=== PATIENT | male | born 1940 | race Caucasian/White ===

== ENCOUNTER 2018-12-13 20:36 | Observation (INO) | payer MEDICARE ==
--- NOTE | 2018-12-13 21:22 | Emergency Department Record ---
History of Present Illness - General Chief complaint: Weakness Stated complaint: SHAKY AND WEAK Time Seen by Provider: 12/13/18 20:53 Source: Patient Mode of Arrival: Ambulatory Limitations: No limitations - History of Present Illness Initial comments: 78 yo male presents to ED for evaluation of generalized weakness to the lower extremities, denies fevers, chills, or recent illness. Patient denies recent injury, denies back pain symptoms resulting in weakness symptoms, denies cough, abdominal pain, or chest pain symptoms. Patient denies vertigo symptoms. Patient denies focal weakness, change in speech, or facial droop symptoms. MD Complaint: Generalized weakness Onset/Timin -: Days(s) Location: Generalized Severity: Moderate Consistency: Constant Improves with: None Worsens with: Other (attempted ambulation) Associated Symptoms: Denies other symptoms - Katherine Coma Scale Eye Response: (4) Open spontaneously Motor Response: (6) Obeys commands Verbal Response: (5) Oriented Katherine Total: 15 - Related Data Home Medications Medication Instructions Recorded Confirmed Last Taken Insulin Aspart [Novolog] 18 units SQ DAILY 12/13/18 12/13/18 12/13/18 Allergies Allergy/AdvReac Type Severity Reaction Status Date / Time codeine Allergy ALTERED Verified 02/08/15 09:27 MENTAL STATUS propoxyphene napsylate Allergy ALTERED Verified 02/08/15 09:27 [From Rajwinder-Jessie] MENTAL STATUS Travel Screening - Travel/Exposure Within Last 30 Days Have you traveled within the last 30 days?: No - Travel/Exposure Within Last Year Have you traveled outside the [place] in the last year?: No - Additonal Travel Details Have you been exposed to anyone with a communicable illness?: No - Travel Symptoms Symptom Screening: None Review of Systems Constitutional: Reports: Malaise, Weakness. Denies: Chills, Fever, Night sweats Eyes: Denies: Eye discharge, Eye pain ENT: Denies: Congestion, Ear pain, Epistaxis Respiratory: Denies: Cough, Dyspnea Cardiovascular: Denies: Chest pain, Dyspnea on exertion Endocrine: Reports: Fatigue. Denies: Heat or cold intolerance, Polydipsia Gastrointestinal: Denies: Abdominal pain, Nausea, Vomiting Genitourinary: Denies: Incontinence, Retention Musculoskeletal: Denies: Arthralgia, Back pain Skin: Denies: Bruising, Change in color Neurological: Denies: Abnormal gait, Confusion, Headache Psychiatric: Denies: Anxiety Hematological/Lymphatic: Denies: Anemia, Blood Clots Past Medical History - SOCIAL HISTORY Smoking Status: Former smoker Alcohol Use: None Drug Use: None - RESPIRATORY Hx Respiratory Disorders: No - CARDIOVASCULAR Hx Cardio Disorders: Yes Hx Hypertension: Yes Comment:: high cholesterol - NEURO Hx Neuro Disorders: No - GI Hx GI Disorders: Yes Hx Reflux: Yes (takes tums) - Hx Genitourinary Disorders: No - ENDOCRINE Hx Endocrine Disorders: Yes Hx Diabetes: Yes (Type 2) Hx Thyroid Disease: No - MUSCULOSKELETAL Hx Musculoskeletal Disorders: Yes Hx Arthritis: Yes - PSYCH Hx Psych Problems: No - HEMATOLOGY/ONCOLOGY Hx Hematology/Oncology Disorders: No Family Medical History Any Significant Family History?: Yes Family Hx Comment (NOT TO BE USED IN PLACE OF ITEMS BELOW): denies Hx Cancer: Mother Physical Exam - General General Appearance: Alert, Oriented x3, Cooperative, No acute distress Limitations: No limitations - Head Head exam: Atraumatic, Normocephalic, Normal inspection Head exam detail: negative: Abrasion, Contusion, Greenberg's sign, General tenderness, Hematoma, Laceration - Eye Eye exam: Normal appearance. negative: Conjunctival injection, Periorbital swelling, Periorbital tenderness, Scleral icterus - ENT Ear exam: negative: Auricular hematoma, Auricular trauma Nasal Exam: negative: Active bleeding, Discharge, Dried blood, Foreign body Mouth exam: negative: Drooling, Laceration, Muffled voice, Tongue elevation - Neck Neck exam: Normal inspection. negative: Meningismus, Tenderness - Respiratory Respiratory exam: Normal lung sounds bilaterally. negative: Rales, Respiratory distress, Rhonchi, Stridor - Cardiovascular Cardiovascular Exam: Regular rate, Normal rhythm, Normal heart sounds - GI/Abdominal GI/Abdominal exam: Soft. negative: Rebound, Rigid, Tenderness - Rectal Rectal exam: Deferred - exam: Deferred - Extremities Extremities exam: Normal inspection. negative: Pedal edema, Tenderness - Back Back exam: Denies: CVA tenderness (R), CVA tenderness (L) - Neurological Neurological exam: Alert, Normal gait, Oriented X3 - Psychiatric Psychiatric exam: Normal affect, Normal mood - Skin Skin exam: Normal color. negative: Abrasion Type of lesion: negative: abrasion Course Vital Signs 12/13/18 20:57 Temperature 99.6 F Pulse Rate [ 94 H Right] Respiratory 19 Rate Blood Pressure 165/84 [Left Arm] Pulse Ox 95 - Reevaluation(s) Reevaluation #1: 12/13/18 21:21 EKG: NSR 89 LAD, IVCD No acute ST-T wave changes are present. Laboratory studies were reviewed and appear grossly unremarkable for an acute process. UA appears negative for infection. CXR: ? retrocardiac infiltrate Patient and family members were updated on all results, will admit for further evaluation. Reevaluation #2: 12/14/18 06:54 Case was discussed with Trinity Bocanegra FIRE FIGHTER, will accept admission at this time. Medical Decision Making - Lab Data Result diagrams: 12/13/18 21:20 12/13/18 21:20 Disposition Disposition: Admit Clinical Impression: Generalized weakness Fever Qualifiers: Fever type: unspecified Qualified Code(s): R50.9 - Fever, unspecified CAP (community acquired pneumonia) Qualifiers: Laterality: unspecified laterality Qualified Code(s): J18.9 - Pneumonia, unspecified organism Disposition: Still a Patient at [facility] Decision to Admit: Admit from ER Decision to Admit Date: 12/13/18 Decision to Admit Time: 23:06 Condition: (2) Stable Time of Disposition: 23:06 Quality - Quality Measures Quality Measures: N/A - Blood Pressure Screening Does Patient Have Any of the Following: Active Dx of HTN Blood Pressure Classification: Normal BP Reading Systolic Measurement: 119 Diastolic Measurement: 59 Screening for High Blood Pressure: Patient Exclusion, Hx of HTN [G9744] Pre-Hypertensive Follow-up Interventions: Referral to alternative/primary care provider.
[2018-12-13 21:34] LABS: ABSOLUTE NEUTROPHIL COUNT 6.48; BASO % 0.1 % (0-6); GRAN % 78.3 % (47-80); HEMATOCRIT 39.4 % (42.0-52.0); HEMOGLOBIN 13.3 gm/dl (14.0-18.0); MEAN CELL VOLUME 92.3 fl (81-97); MEAN CORPUSCULAR HEMOGLOBIN 31.1 pg (27-33); MEAN CORPUSCULAR HGB CONC 33.8 g/dl (32-36); MONO % 9.6 % (0-9); PLATELET COUNT 223 K/uL (130-400); RED BLOOD COUNT 4.27 M/uL (4.40-5.70); RED CELL DISTRIBUTION WIDTH 13.3 % (11.5-14.5); WHITE BLOOD COUNT W/O DIFF 8.3 K/uL (4.2-12.2)
[2018-12-13 21:40] LABS: URINE APPEARANCE CLEAR; URINE BILIRUBIN NEGATIVE (NEGATIVE); URINE BLOOD TRACE-I (NEGATIVE); URINE COLOR YELLOW; URINE KETONE NEGATIVE (NEGATIVE); URINE LEUKOCYTE ESTERASE NEGATIVE (NEGATIVE); URINE NITRITE NEGATIVE (NEGATIVE); URINE UROBILINOGEN 0.2 E.U./dL (0.20 - 1.00)
[2018-12-13 21:45] LABS: BLOOD UREA NITROGEN 16 mg/dL (8-23)
[2018-12-13 21:46] LABS: EST GLOMERULAR FILTRATION RATE > 60 mL/min; TOTAL PROTEIN 7.2 g/dL (6.6-8.7)
[2018-12-13 21:48] LABS: URINE EPITHELIAL CELLS NONE SEEN (FEW); URINE RBC NONE SEEN (NONE SEEN); URINE WBC NONE SEEN (0-2/hpf)
[2018-12-13 21:48] LABS: GLUCOSE,RANDOM 145 mg/dL (74-109)
[2018-12-13 21:51] LABS: ALB/GLOB RATIO 1.4 (1.1-1.8); ALBUMIN 4.2 g/dL (4.0-5.0); ALKALINE PHOSPHATASE 49 U/L (40-129); ALT/SGPT 14 U/L (<41); AST/SGOT 16 U/L (10.0-50.0)
[2018-12-13] MEDS ORDERED: ACETAMINOPHEN 500 MG TABLET PO ONE (22:10)
[2018-12-13] MEDS ORDERED: PIPERACILLIN SODIUM/TAZOBACTAM 4.5 GM in 0.9 % SODIUM CHLORIDE 100ML 100 ML IVPB ONE (23:04)
[2018-12-13] MEDS ORDERED: AZITHROMYCIN 500 MG TABLET PO ONE (23:04)
[2018-12-13] MEDS ORDERED: ACETAMINOPHEN 500 MG TABLET PO PRN (23:32)
[2018-12-13] MEDS ORDERED: PIPERACILLIN SODIUM/TAZOBACTAM 4.5 GM in 0.9 % SODIUM CHLORIDE 100ML 100 ML IVPB SCH (23:32)
[2018-12-13] MEDS ORDERED: 0.9 % SODIUM CHLORIDE 1000ML 1,000 ML IV PRN (23:32)
[2018-12-14] MEDS: PIPERACILLIN SODIUM/TAZOBACTAM 4.5 GM in 0.9 % SODIUM CHLORIDE 100ML 100 ML IVPB SCH ×2 (05:04→12:39)
[2018-12-14] MEDS ORDERED: HUMALOG SC SCH (07:00)
[2018-12-14] MEDS ORDERED: NOVOLOG SC SCH (07:00)
[2018-12-14] MEDS ORDERED: NOVOLOG FLEXPEN (INSULIN ASPART) 100 UNITS/ML SQ SCH (07:00)
--- NOTE | 2018-12-14 07:16 | RADIOLOGY REPORT ---
EXAM: CHEST, TWO VIEWS HISTORY: DRY COUGH. WEAKNESS AND SHAKING FOR THE LAST TWO DAYS. TECHNIQUE: Upright PA and lateral views of the chest were obtained. Comparison: CT angiogram of the chest dated 03/02/16. FINDINGS: The lung volumes are low. The heart is not enlarged. No pulmonary venous hypertension is seen. No definite confluent air space opacity is identified nor is there costophrenic angle blunting or pneumothorax. There are degenerative changes scattered throughout the visualized spine and shoulder girdles. IMPRESSION: LOW LUNG VOLUMES. NO DEFINITE RADIOGRAPHIC EVIDENCE OF ACUTE CARDIOPULMONARY DISEASE. JOB NUMBER: [id number] [facility]
[2018-12-14] MEDS ORDERED: METFORMIN 500 MG TABLET PO SCH (08:00)
[2018-12-14] MEDS ORDERED: METFORMIN 500 MG PO SCH ×2 (08:00→17:30)
[2018-12-14 09:21] LABS: ABSOLUTE NEUTROPHIL COUNT 4.67; BASO % 0.2 % (0-6); GRAN % 73.1 % (47-80); HEMATOCRIT 37.6 % (42.0-52.0); HEMOGLOBIN 12.4 gm/dl (14.0-18.0); LYMPH % 15.3 % (16-45); MEAN CELL VOLUME 93.3 fl (81-97); MEAN PLATELET VOLUME 9.1 fl (7.4-10.4); MONO % 11.4 % (0-9); PLATELET COUNT 208 K/uL (130-400); RED BLOOD COUNT 4.03 M/uL (4.40-5.70); RED CELL DISTRIBUTION WIDTH 13.3 % (11.5-14.5); WHITE BLOOD COUNT W/O DIFF 6.4 K/uL (4.2-12.2)
[2018-12-14] MEDS ORDERED: ACETAMINOPHEN 500 MG PO PRN (09:23)
[2018-12-14 09:30] LABS: MEAN CORPUSCULAR HEMOGLOBIN 30.7 pg (27-33)
--- NOTE | 2018-12-14 09:47 | Rehab Evaluation ---
Patient Information - Patient Information Diagnosis: Generalized weakness, CAP Ordered Treatment: PT Evaluate and Treat Status: Initial Evaluation History: Detail (Patient presented to ED on 12/14 with generalized weakness.) Past Medical/Surgical Hx: PAST MEDICAL/SURGICAL HISTORY Past Surgical History appy left thumb right & left cataract R knee replacement; R rotator cuff repair PMH - Respiratory Hx Respiratory Disorders No PMH - Cardiovascular Hx Cardiovascular Disorders Yes Hx Hypertension Yes Comment: high cholesterol PMH - Neuro Hx Neurological Disorders No PMH - GI Hx Gastrointestinal Disorders Yes Hx Gastroesophageal Reflux Yes: takes tums PMH - Hx Genitourinary Disorders No PMH - Endocrine Hx Endocrine Disorders Yes Hx Diabetes Yes: Type 2 Hx Thyroid Disease No PMH - Musculoskeletal Hx Musculoskeletal Disorders Yes Hx Arthritis Yes PMH - Psych Hx Psychiatric Problems No PMH - Hematology/Oncology Hx Hematology/Oncology No Disorders Premorbid Status: Detail (The patient was ambulatory without device prior to admission. The patient was independent with all ADL's and did his own laundry. The patient shared yard work and other cost specialist with his sons and grandsons.) Social History: Detail (The patient lives in a 2 story home with a basement with 4 to 5 stairs at the enterance with 2 hand railings. The bathroom is equipped with a tub/shower combination with a tub chair, handheld shower and grab bars. The patient has a standard toilet with no grab bars. The patient has a front wheeled walker and several canes including a quad cane and standard cane.) Precautions: [place], Fall - Time With Patient Total Time Spent With Patient (Min): 30 Treatment Procedures: Detail (Initial evaluation, gait training.) Subjective Information - Subjective Information Per Patient (The patient had no complaints of pain and reports his LE weakness is better. 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.) Objective Data - Mental Status Patient Orientation: Oriented x3 - Visual Perception Appears within normal limits for therapeutic activities - ROM Within normal limits - Strength/Tone Not within normal limits (The patient's LE strength is generally 4+ to 5 /5 except for R knee extensors 4/5.) - Bed Mobility Independent (The patient required minimal PA of one with supine to sit ( hand hold to pull up only- patient refused to try supine to sit by himself)) - Transfers Independent (The patient was independent with sit to and from stand transfer.) - Balance Balance Sitting: Good Balance Standing: Fair (The patient was moderate risk for falling using Tinetti Assessment Tool. Patient scored 23/28 ( 19-23 scores are moderate risk). The patient had slight unsteadiness with right side perturbations however was able to right himself without PT intervention.) - Gait Detail (The patient ambulated with front wheeled walker independently a distance of 130 feet x 1. The patient ambulated on 3 steps with use of one railing with supervision for safety only.) Therapy Assessment - Therapy Assessment Detail (The patient was independent with transfers and ambulation. Due to current moderate fall risk rating using the Tinetti Assessment Tool, it was recommended to patient and his son that he use the walker while ambulating at home. Feel due to independence with mobility, patient does not require Home PT services at this time. Patient did not express any interest in ongoing PT services.) Patient Education - Patient Education Teaching Topic: Precautions (The patient was educated in fall prevention at home.) Teaching Method: Discussion Teaching Recipient: Patient, Family Barriers To Learning: Age Related Problem List - Problem List Physical Therapy Problem List: Detail (1) Moderate Fall risk) Goals - Goals Physical Therapy Goals: No PT goals at this time. Patient is independent with mobility. Plan - Plan Physical Therapy Plan: No ongoing PT is recommended at this time.
[2018-12-14 09:49] LABS: BLOOD UREA NITROGEN 13 mg/dL (8-23); EST GLOMERULAR FILTRATION RATE > 60 mL/min
[2018-12-14 09:51] LABS: GLUCOSE,RANDOM 151 mg/dL (74-109)
[2018-12-14] MEDS ORDERED: LISINOPRIL 2.5 MG PO SCH (10:00)
[2018-12-14] MEDS ORDERED: ASPIRIN 81 MG PO SCH (10:00)
[2018-12-14] MEDS ORDERED: [UNRECOGNIZED DRUG - OTHER] SC SCH (10:00)
[2018-12-14] MEDS ORDERED: INSULIN GLARGINE 100 UNIT/ML SC SCH (10:00)
[2018-12-14] MEDS ORDERED: ASPIRIN 81 MG TABEC PO SCH (10:00)
[2018-12-14] MEDS ORDERED: LEVEMIR FLEXTOUCH 100 UNIT/ML INSULIN PEN SQ SCH (10:00)
[2018-12-14] MEDS ORDERED: VITAMIN D PO SCH (10:00)
--- NOTE | 2018-12-14 10:06 | History & Physical ---
History of Present Illness - Date of Service Date of Service for History & Physical: 12/14/18 - History of Present Illness Admitting Diagnosis: CAP. Generalized weakness. Fever History of Present Illness: 78 yo male presents to ER for generalized weakness after difficulty getting out of his chair while home. Son brought him in via private vehicle. Pt denies fever, chills, CP, cough or shortness of breath. 12/13/18 WBC 8.3, Hgb 13.3, Hct 39.4, Plt 223 Na 134, K 4.2m BUN 16, Cr 1, GFR>60, glucose 145 Trop <0.010 Temp 99.6, HR 94, BP 165/84, RR 19, 95% RA, repeat temp showed 100.6 oral, BP 129/81, HR 83 Pt was given 1gm tylenol, ASA 81mg, Azithromycin 500mg, NS IVF at 125/hr, and Zosyn 4.5gm IVPB CXR negative, UA neg for infection 12/14/18 Pt resting comfortably in bed, no acute distress, denies pain, fever, chills, shortness of breath or weakness. Asking to go home today as he feels better and does not feel weak today. PT/OT eval ordered and completed, pt ambulating in hallway with no difficulty. Lungs CTA, heart RRR, no edema noted, skin pwd. Pt is a&ox4, son at bedside states pt appears to be his normal self. POC, repeat labs unremarkable other than low Mag, 2gm IVPB replaced. Pt to continue zithromax 5 days related to general weakness and isolated fever with comorbities of age and DM. [facility] [place] Travel Screening - Travel/Exposure Within Last 30 Days Have you traveled within the last 30 days?: No Location Detail:: [place] - Travel/Exposure Within Last Year Have you traveled outside the [place] in the last year?: No - Additonal Travel Details Have you been exposed to anyone with a communicable illness?: No - Travel Symptoms Symptom Screening: None Review of Systems Constitutional: Reports: Malaise, Weakness. Denies: Chills, Fever, Night sweats Eyes: Denies: Eye discharge, Eye pain ENT: Denies: Congestion, Ear pain, Epistaxis Respiratory: Denies: Cough, Dyspnea Cardiovascular: Denies: Chest pain, Dyspnea on exertion Endocrine: Reports: Fatigue. Denies: Heat or cold intolerance, Polydipsia Gastrointestinal: Denies: Abdominal pain, Nausea, Vomiting Genitourinary: Denies: Incontinence, Retention Musculoskeletal: Denies: Arthralgia, Back pain Skin: Denies: Bruising, Change in color Neurological: Denies: Abnormal gait, Confusion, Headache Psychiatric: Denies: Anxiety Hematological/Lymphatic: Denies: Anemia, Blood Clots Past Medical History - SOCIAL HISTORY Smoking Status: Former smoker Alcohol Use: None Drug Use: None - RESPIRATORY Hx Respiratory Disorders: No - CARDIOVASCULAR Hx Cardio Disorders: Yes Hx Hypertension: Yes Comment:: high cholesterol - NEURO Hx Neuro Disorders: No - GI Hx GI Disorders: Yes Hx Reflux: Yes (takes tums) - Hx Genitourinary Disorders: No - ENDOCRINE Hx Endocrine Disorders: Yes Hx Diabetes: Yes (Type 2) Hx Thyroid Disease: No - MUSCULOSKELETAL Hx Musculoskeletal Disorders: Yes Hx Arthritis: Yes - PSYCH Hx Psych Problems: No - HEMATOLOGY/ONCOLOGY Hx Hematology/Oncology Disorders: No Family Medical History Any Significant Family History?: Yes Family Hx Comment (NOT TO BE USED IN PLACE OF ITEMS BELOW): denies Hx Cancer: Mother H&P Meds/Allergies - Allergies Allergies: Allergies Allergy/AdvReac Type Severity Reaction Status Date / Time codeine Allergy ALTERED Verified 02/08/15 09:27 MENTAL STATUS propoxyphene napsylate Allergy ALTERED Verified 02/08/15 09:27 [From Katia] MENTAL STATUS - Home Medications Home Medications Medication Instructions Recorded Confirmed Last Taken Insulin Aspart [Novolog] 18 units SQ DAILY 12/13/18 12/13/18 12/13/18 - Active Medications Active Medications: Current Medications Sodium Chloride () 1,000 mls @ 125 mls/hr IV .Q8H PRN PRN Reason: LARGE VOLUME IV Last Admin: 12/14/18 08:59 Dose: 125 mls/hr Documented by: Azithromycin 500 mg/ Sodium (Chloride) 250 mls @ 250 mls/hr IVPB Q24H [facility]EL Stop: 12/19/18 22:01 Piperacillin Sod/Tazobactam (Sod 4.5 gm/ Sodium Chloride) 100 mls @ 200 mls/hr IVPB Q6H CHANTEL Last Infusion: 12/14/18 05:54 Dose: Infused Documented by: Patient Own Med: Acetaminophen 500mg Tabs 1,000 each PO Q6H PRN PRN Reason: PAIN - MILD(1-4)/FEVER Patient Own Med: Aspirin 81mg Enteric Coated 81 each PO DAILY [facility] Last Admin: 12/14/18 09:43 Dose: 81 each Documented by: Patient Own Med: (Humalog Flexpen) 18 each SC DAILYAC [facility] Patient Own Med: Lantus Flextouch 100 Unit/Ml Insulin Pen 48 each SC BID [facility] Last Admin: 12/14/18 09:43 Dose: 48 each Documented by: Patient Own Med: Metformin 500 Mg Tablet 1,000 each PO BIDWM [facility] Patient Own Med: Rosuvastatin 10 Mg Tablet 10 each PO QHS [facility] Patient Own Med: (Lisinipril 2.5mg Tab) 1 each PO DAILY [facility] Patient Own Med: Vitamin D 2000 Rubber Liner. Units 1 each PO DAILY [facility] Physical Exam - Vital Signs Vital Signs: Vital Signs - Last 24 Hrs Temp Pulse Pulse Resp BP BP Pulse Ox 12/14/18 08:00 98.1 F 69 16 123/68 97 12/14/18 04:00 98.5 F 67 14 119/59 95 12/14/18 01:34 85 16 12/14/18 01:31 97.7 F 85 16 110/73 96 12/13/18 22:47 99.0 F 72 20 125/71 95 12/13/18 21:59 100.6 F H 83 18 129/81 94 L 12/13/18 20:57 99.6 F 94 H 19 165/84 95 - General General Appearance: Alert, Oriented x3, Cooperative, No acute distress Limitations: No limitations - Head Head exam: Atraumatic, Normocephalic, Normal inspection Head exam detail: negative: Abrasion, Contusion, Greenberg's sign, General tenderness, Hematoma, Laceration - Eye Eye exam: Normal appearance. negative: Conjunctival injection, Periorbital swelling, Periorbital tenderness, Scleral icterus - ENT Ear exam: negative: Auricular hematoma, Auricular trauma Nasal Exam: negative: Active bleeding, Discharge, Dried blood, Foreign body Mouth exam: negative: Drooling, Laceration, Muffled voice, Tongue elevation - Neck Neck exam: Normal inspection. negative: Meningismus, Tenderness - Respiratory Respiratory exam: Normal lung sounds bilaterally. negative: Rales, Respiratory distress, Rhonchi, Stridor - Cardiovascular Cardiovascular Exam: Regular rate, Normal rhythm, Normal heart sounds - GI/Abdominal GI/Abdominal exam: Soft. negative: Rebound, Rigid, Tenderness - Rectal Rectal exam: Deferred - exam: Deferred - Extremities Extremities exam: Normal inspection. negative: Pedal edema, Tenderness - Back Back exam: Denies: CVA tenderness (R), CVA tenderness (L) - Neurological Neurological exam: Alert, Normal gait, Oriented X3 - Psychiatric Psychiatric exam: Normal affect, Normal mood - Skin Skin exam: Normal color. negative: Abrasion Type of lesion: negative: abrasion Results - Labs Result Diagrams: 12/14/18 08:45 12/14/18 08:45 Labs Last 24 Hours: Laboratory Results - last 24 hr 12/13/18 12/13/18 12/13/18 21:20 21:20 21:35 WBC 8.3 RBC 4.27 L Hgb 13.3 L Hct 39.4 L MCV 92.3 MCH 31.1 MCHC 33.8 RDW 13.3 Plt Count 223 MPV 9.0 Gran % 78.3 Lymphocytes % 12.0 L Monocytes % 9.6 H Eosinophils % 0.0 Basophils % 0.1 Absolute Neutrophils 6.48 Sodium 134 L Potassium 4.2 Chloride 97 L Carbon Dioxide 24.0 Anion Gap 13.0 BUN 16 Creatinine 1.0 Estimated GFR > 60 Random Glucose 145 H Calcium 9.3 Magnesium Total Bilirubin 0.60 AST 16 ALT 14 Alkaline Phosphatase 49 Troponin T < 0.010 Total Protein 7.2 Albumin 4.2 Globulin 3.0 Albumin/Globulin Ratio 1.4 Procalcitonin Urine Color Yellow Urine Appearance Clear Urine pH 6.0 Ur Specific [place] 1.020 Urine Protein 100 mg/dl H Urine Glucose (UA) 250 mg/dl H Urine Ketones Negative Urine Blood Trace-i Urine Nitrite Negative Urine Bilirubin Negative Urine Urobilinogen 0.2 Ur Leukocyte Esterase Negative Urine RBC None seen Urine WBC None seen Ur Epithelial Cells None seen 12/14/18 12/14/18 12/14/18 08:45 08:45 08:45 WBC 6.4 RBC 4.03 L Hgb 12.4 L Hct 37.6 L MCV 93.3 MCH 30.7 MCHC 33.0 RDW 13.3 Plt Count 208 MPV 9.1 Gran % 73.1 Lymphocytes % 15.3 L Monocytes % 11.4 H Eosinophils % 0.0 Basophils % 0.2 Absolute Neutrophils 4.67 Sodium 142 Potassium 3.8 Chloride 105 Carbon Dioxide 23.0 Anion Gap 14.0 BUN 13 Creatinine 1.0 Estimated GFR > 60 Random Glucose 151 H Calcium 8.9 Magnesium 1.3 L Total Bilirubin AST ALT Alkaline Phosphatase Troponin T Total Protein Albumin Globulin Albumin/Globulin Ratio Procalcitonin Cancelled Urine Color Urine Appearance Urine pH Ur Specific [place] Urine Protein Urine Glucose (UA) Urine Ketones Urine Blood Urine Nitrite Urine Bilirubin Urine Urobilinogen Ur Leukocyte Esterase Urine RBC Urine WBC Ur Epithelial Cells VTE H&P Assessment - Risk for VTE Risk for VTE: Yes Risk Level: High Risk Assessment Date: 12/14/18 Risk Assessment Time: 13:07 VTE Orders Placed or Will Be Placed: Yes Plan - Detailed Diagnosis and Plan (1) Generalized weakness Current Visit: Yes Status: Acute Base Code: R53.1 - WEAKNESS Comment: 12/14/18 -Pt admitted for generalized weakness following a very hot and humid day -son was at his house, reports pt had difficulty standing from his chair -denied cough, dysuria, recent infection or sick contacts -CXR negative, there was concern for CAP but spoke with Dr Trevino radiologist and CXR does not show CAP and pt is not symptomatic of CAP -pt had one episode of fever in ER, will continue azithromycin for fever -EKG negative, trop neg, UA negative for infection -Mag low and replaced -WBC neg x2, RFTs unremarkable (2) Diabetes mellitus type 2, insulin dependent Current Visit: No Status: Acute Base Code: E11.9 - TYPE 2 DIABETES MELLITUS WITHOUT COMPLICATIONS; Z79.4 - LADLE PULLER (CURRENT) USE OF INSULIN Comment: 12/14/18 -pt to continue metformin 1000mg BID, levermir 48unit BOD, novolog 18 units with meals -follow with [facility] for DM management (3) Hypomagnesemia Current Visit: Yes Status: Acute Base Code: E83.42 - HYPOMAGNESEMIA Comment: 12/14/18 -Mag 1.3, 2Gm Mag IVPB given -EKG neg for acute process, no ectopy noted (4) Full code status Current Visit: No Status: Acute Base Code: Z78.9 - OTHER SPECIFIED HEALTH STATUS Comment: 12/14/18 Patient full code status (5) DVT prophylaxis Current Visit: No Status: Acute Base Code: [id number] - Comment: 12/14/18 -pt in overnight, would start lovenox 40mg SQ if staying greater than 24 hours
[2018-12-14] MEDS ORDERED: MAGNESIUM SULFATE 16 MEQ in 0.9 % SODIUM CHLORIDE 100ML 100 ML IV ONE (10:37)
--- NOTE | 2018-12-14 10:47 | Rehab Evaluation ---
Patient Information - Patient Information Diagnosis: Generalized weakness, CAP Ordered Treatment: OT Evaluate and Treat Status: Initial Evaluation Surgery: No History: Detail (Patient presented to ED on 12/14 with generalized weakness.) Past Medical/Surgical Hx: PAST MEDICAL/SURGICAL HISTORY Past Surgical History appy left thumb right & left cataract R knee replacement; R rotator cuff repair PMH - Respiratory Hx Respiratory Disorders No PMH - Cardiovascular Hx Cardiovascular Disorders Yes Hx Hypertension Yes Comment: high cholesterol PMH - Neuro Hx Neurological Disorders No PMH - GI Hx Gastrointestinal Disorders Yes Hx Gastroesophageal Reflux Yes: takes tums PMH - Hx Genitourinary Disorders No PMH - Endocrine Hx Endocrine Disorders Yes Hx Diabetes Yes: Type 2 Hx Thyroid Disease No PMH - Musculoskeletal Hx Musculoskeletal Disorders Yes Hx Arthritis Yes PMH - Psych Hx Psychiatric Problems No PMH - Hematology/Oncology Hx Hematology/Oncology No Disorders Premorbid Status: Detail (The patient was ambulatory without device prior to admission. The patient was independent with all ADL's and did his own laundry. The patient shared yard work, meal prep and other oven heater with his sons and grandsons. He still drives [employer].) Social History: Detail (The patient lives in a 2 story home with a basement with 4 to 5 stairs at the entrance with 2 hand railings. His bedroom and bathroom are on the main level. The bathroom is equipped with a tub/shower combination with a tub chair, handheld shower and grab bars. The patient has a standard toilet with no grab bars. The patient has a front wheeled walker and several canes including a quad cane and standard cane.) Precautions: [place], Fall - Time With Patient Total Time Spent With Patient (Min): 40 Treatment Procedures: Detail (OT eval low complexity) Subjective Information - Subjective Information Per Patient Objective Data - Pain Pain Present: No - Mental Status Patient Orientation: Oriented x3 - Visual Perception Appears within normal limits for therapeutic activities - ROM Within normal limits (Scott UE AROM WNL) - Strength/Tone Within normal limits (Scott UE strength 4+/5) - Coordination Appears within normal limits for therapeutic activities - Bed Mobility Needs Assist (Pt required min assist for supine to sit) - Transfers Independent (Ind with sit to stand from EOB) - Balance Balance Sitting: Good Balance Standing: Fair - Sensation Intact - Gait Detail (Pt ambulating in hallway with 2 wheeled walker and SBA) - ADL's/IADL's Detail (Pt able to demonstrate doffing slipper socks and donning socks and tennis shoes. He reports no concern about ADLs after discharge.) Therapy Assessment - Therapy Assessment Detail (Pt reports no concerns with ADLs/IADLs and he was able to demonstrate Ind with partial lower body dressing.) Problem List - Problem List Physical Therapy Problem List: Detail (1) Moderate Fall risk) Occupational Therapy Problem List: Detail (No current IP OT problems noted at this time.) Goals - Goals Physical Therapy Goals: No PT goals at this time. Patient is independent with mobility. Occupational Therapy Goals: No current IP OT goals. Prognosis - Prognosis Good Plan - Plan Physical Therapy Plan: No ongoing PT is recommended at this time. Occupational Therapy Plan: No further IP OT recommended. Pt reports he does not feel he needs home OT.
--- NOTE | 2018-12-14 13:13 | Discharge Summary ---
Providers Discharge Summary Date: 12/14/18 Date of admission: 12/13/18 23:22 Expected Date of Discharge: 12/14/18 Attending physician: JOEY TOLBERT Physical Exam - Vital Signs Vital Signs: Vital Signs - Last 24 Hrs Temp Pulse Pulse Resp BP BP Pulse Ox 12/14/18 11:33 98.8 F 66 15 116/54 94 L 12/14/18 08:00 98.1 F 69 16 123/68 97 12/14/18 04:00 98.5 F 67 14 119/59 95 12/14/18 01:34 85 16 12/14/18 01:31 97.7 F 85 16 110/73 96 12/13/18 22:47 99.0 F 72 20 125/71 95 12/13/18 21:59 100.6 F H 83 18 129/81 94 L 12/13/18 20:57 99.6 F 94 H 19 165/84 95 - General General Appearance: Alert, Oriented x3, Cooperative, No acute distress Limitations: No limitations - Head Head exam: Atraumatic, Normocephalic, Normal inspection Head exam detail: negative: Abrasion, Contusion, Greenberg's sign, General tenderness, Hematoma, Laceration - Eye Eye exam: Normal appearance. negative: Conjunctival injection, Periorbital swelling, Periorbital tenderness, Scleral icterus - ENT Ear exam: negative: Auricular hematoma, Auricular trauma Nasal Exam: negative: Active bleeding, Discharge, Dried blood, Foreign body Mouth exam: negative: Drooling, Laceration, Muffled voice, Tongue elevation - Neck Neck exam: Normal inspection. negative: Meningismus, Tenderness - Respiratory Respiratory exam: Normal lung sounds bilaterally. negative: Rales, Respiratory distress, Rhonchi, Stridor - Cardiovascular Cardiovascular Exam: Regular rate, Normal rhythm, Normal heart sounds - GI/Abdominal GI/Abdominal exam: Soft. negative: Rebound, Rigid, Tenderness - Rectal Rectal exam: Deferred - exam: Deferred - Extremities Extremities exam: Normal inspection. negative: Pedal edema, Tenderness - Back Back exam: Denies: CVA tenderness (R), CVA tenderness (L) - Neurological Neurological exam: Alert, Normal gait, Oriented X3 - Psychiatric Psychiatric exam: Normal affect, Normal mood - Skin Skin exam: Normal color. negative: Abrasion Type of lesion: negative: abrasion Hospitalization - Hospitalization Admission Diagnosis: CAP. Generalized weakness. Fever - Problem List/Discharge Diagnosis (1) Generalized weakness Current Visit: Yes Status: Acute Base Code: R53.1 - WEAKNESS Comment: 12/14/18 -Pt admitted for generalized weakness following a very hot and humid day -son was at his house, reports pt had difficulty standing from his chair -denied cough, dysuria, recent infection or sick contacts -CXR negative, there was concern for CAP but spoke with Dr Trevino radiologist and CXR does not show CAP and pt is not symptomatic of CAP -pt had one episode of fever in ER, will continue azithromycin for fever -EKG negative, trop neg, UA negative for infection -Mag low and replaced -WBC neg x2, RFTs unremarkable (2) Diabetes mellitus type 2, insulin dependent Current Visit: No Status: Acute Base Code: E11.9 - TYPE 2 DIABETES MELLITUS WITHOUT COMPLICATIONS; Z79.4 - LONG-TERM (CURRENT) USE OF INSULIN Comment: 12/14/18 -pt to continue metformin 1000mg BID, levermir 48unit BOD, novolog 18 units with meals -follow with PCP at [facility] for DM management (3) Hypomagnesemia Current Visit: Yes Status: Acute Base Code: E83.42 - HYPOMAGNESEMIA Comment: 12/14/18 -Mag 1.3, 2Gm Mag IVPB given -EKG neg for acute process, no ectopy noted (4) Full code status Current Visit: No Status: Acute Base Code: Z78.9 - OTHER SPECIFIED HEALTH STATUS Comment: 12/14/18 Patient full code status (5) DVT prophylaxis Current Visit: No Status: Acute Base Code: [id number] - Comment: 12/14/18 -pt in overnight, would start lovenox 40mg SQ if staying greater than 24 hours - Hospitalization Course Disposition: Home, Self-Care Hospital Course: 78 yo male presents to ER for generalized weakness after difficulty getting out of his chair while home. Son brought him in via private vehicle. Pt denies fever, chills, CP, cough or shortness of breath. 12/13/18 WBC 8.3, Hgb 13.3, Hct 39.4, Plt 223 Na 134, K 4.2m BUN 16, Cr 1, GFR>60, glucose 145 Trop <0.010 Temp 99.6, HR 94, BP 165/84, RR 19, 95% RA, repeat temp showed 100.6 oral, BP 129/81, HR 83 Pt was given 1gm tylenol, ASA 81mg, Azithromycin 500mg, NS IVF at 125/hr, and Zosyn 4.5gm IVPB CXR negative, UA neg for infection 12/14/18 Pt resting comfortably in bed, no acute distress, denies pain, fever, chills, shortness of breath or weakness. Asking to go home today as he feels better and does not feel weak today. PT/OT eval ordered and completed, pt ambulating in hallway with no difficulty. Lungs CTA, heart RRR, no edema noted, skin pwd. Pt is a&ox4, son at bedside states pt appears to be his normal self. POC, repeat labs unremarkable other than low Mag, 2gm IVPB replaced. Pt to continue zithromax 5 days related to general weakness and isolated fever with comorbities of age and DM. [facility] [place] Procedures: Imaging and X-Rays 12/13/18 22:01 CHEST 2 VIEWS [RAD] Stat Cardiology Procedures 12/13/18 20:53 EKG NOW 12/13/18 23:32 Clamshell Engineer .Continuous Abnormal Labs: Abnormal Lab Results 12/13/18 12/13/18 12/13/18 Range/Units 21:20 21:20 21:35 RBC 4.27 L (4.40-5.70) M/uL Hgb 13.3 L (14.0-18.0) gm/dl Hct 39.4 L (42.0-52.0) % Lymphocytes % 12.0 L (16-45) % Monocytes % 9.6 H (0-9) % Sodium 134 L (136-145) mmol/L Chloride 97 L (98-107) mmol/L POC Glucose (70-110) mg/dL Random Glucose 145 H (74-109) mg/dL Magnesium (1.6-2.4) mg/dL Urine Protein 100 mg/dl H (NEGATIVE) Urine Glucose (UA) 250 mg/dl H (NEGATIVE) 12/14/18 12/14/18 12/14/18 Range/Units 08:45 08:45 08:45 RBC 4.03 L (4.40-5.70) M/uL Hgb 12.4 L (14.0-18.0) gm/dl Hct 37.6 L (42.0-52.0) % Lymphocytes % 15.3 L (16-45) % Monocytes % 11.4 H (0-9) % Sodium (136-145) mmol/L Chloride (98-107) mmol/L POC Glucose (70-110) mg/dL Random Glucose 151 H (74-109) mg/dL Magnesium 1.3 L (1.6-2.4) mg/dL Urine Protein (NEGATIVE) Urine Glucose (UA) (NEGATIVE) 12/14/18 Range/Units 11:30 RBC (4.40-5.70) M/uL Hgb (14.0-18.0) gm/dl Hct (42.0-52.0) % Lymphocytes % (16-45) % Monocytes % (0-9) % Sodium (136-145) mmol/L Chloride (98-107) mmol/L POC Glucose 159 H (70-110) mg/dL Random Glucose (74-109) mg/dL Magnesium (1.6-2.4) mg/dL Urine Protein (NEGATIVE) Urine Glucose (UA) (NEGATIVE) Condition at Discharge: (2) Stable Discharge Medications - Discharge Medications Prescriptions: Azithromycin 250 mg PO DAILY 4 Days #4 tablet Home Medications: Ambulatory Orders Aspirin [Aspirin EC] 81 mg PO DAILY 02/08/15 [Last Taken 12/13/18] Cholecalciferol (Vitamin D3) [Vitamin D3] 2,000 unit PO DAILY 02/08/15 [Last Taken 12/13/18] Insulin Detemir [Levemir] 48 unit SQ BID 02/08/15 [Last Taken 12/13/18] Metformin HCl 1,000 mg PO BID 02/08/15 [Last Taken 12/13/18] Rosuvastatin Calcium [Crestor] 10 mg PO QHS 02/08/15 [Last Taken 12/13/18] Insulin Aspart [Novolog] 18 units SQ DAILY 12/13/18 [Last Taken 12/13/18] Azithromycin 250 mg PO DAILY 4 Days #4 tablet 12/14/18 [Last Taken Unknown] Discharge Plan - Discharge Instructions Activity at Discharge: Increase Activity as Tolerated Diet at Discharge: Advance to Usual Diet Additional Instructions: -Make an appointment to see your primary care provider at the [facility] within 2-3 weeks of discharge. You had a fever in the ER but your chest xray and labs are good. Continue azithromycin for 4 more days. Go back to ER for weakness, cough, shortness of breath, chest pain, or other concerns for illness. Quality Measures - Quality Measures Quality Measures: Advance Directives, Documentation of Current Medications in Medical Record, Elder Maltreatment Screen and Follow-Up Plan, Screening for High Blood Pressure and F/U Documented - Current Medications Quality Measure: Measure #130: Documentation of Current Medications Documentation of Current Medications: <Current Medications Documented/Reviewed> [G2556] - Blood Pressure Screening Quality Measure: Screening for High Blood Pressure and Follow-Up Documented Does Patient Have Any of the Following: Active Dx of HTN Blood Pressure Classification: Normal BP Reading Systolic Measurement: 116 Diastolic Measurement: 54 Screening for High Blood Pressure: Patient Exclusion, Hx of HTN [G9744] - Advance Directives Quality Measure: Measure #47: Care Plan Advance Directives Established: No Advance Directives Information Provided To Patient: No Advance Directives on File: No Living Will: No Power of Gas Station Attendant: No Advance Care Planning: <Care Plan/Decision Maker Documented; Discussed & Documented> [[id number]] - Elder Abuse Suspicion Index Screening: Elder Abuse Suspicion Index Screening Rely on people for bathing, dressing, shopping, banking, etc: Yes Prevented from getting food, clothes, medication, etc: No Made to feel shamed or threatened by someone: No Forced to sign papers or use money against will: No Feel afraid, touched in ways not wanted or hurt physically: No Poor eye contact, withdrawn, malnourished, cuts or bruises: No Screening Result: Negative result EASI Reference Information: Renetta CLAUDIO, Peter C, Deric D, Dari Maya.Development and validation of a tool to assist physicians identification of elder abuse: The Elder Abuse Suspicion Index (EASI ). Journal of Elder Abuse and Neglect, 2008; 20 (3): 276-300. - Elder Maltreatment Screen Quality Measures: Elder Maltreatment Screen and Follow-Up Plan Elder Maltreatment Screen: <Negative, No Follow-Up Plan Required> [G8734]
[2018-12-14] MEDS ORDERED: AZITHROMYCIN 500 MG in 0.9 % SODIUM CHLORIDE 250ML 250 ML IVPB SCH (22:00)
[2018-12-14] MEDS ORDERED: ATORVASTATIN 20 MG TABLET PO SCH (22:00)
[2018-12-14] MEDS ORDERED: ROSUVASTATIN 10 MG PO SCH (22:00)
[2018-12-15] MEDS ORDERED: HUMALOG SC SCH (07:00)
[2018-12-15] MEDS ORDERED: NOVALOG SC SCH (07:00)
== END 2018-12-14 14:19 | disposition home or self-care (01) ==
LOC: ER 20:36 → UNDOADMOB 23:22 → MEDSURG 23:22
PROVIDERS: ADMIT Internal Medicine; ATTEND Internal Medicine
DX: J18.9 Pneumonia, unspecified organism (principal); R50.9 Fever, unspecified; E83.42 Hypomagnesemia; I10 Essential (primary) hypertension; E78.00 Pure hypercholesterolemia, unspecified; E11.9 Type 2 diabetes mellitus without complications; Z79.4 Long term (current) use of insulin; M19.90 Unspecified osteoarthritis, unspecified site; Z87.891 Personal history of nicotine dependence
CPT/HCPCS: 36416; 71046; 80048; 80053; 81001; 82948; 83735; 84484; 85025; 93005; 93010; 96365; 99220; 99285; J2543